=== PATIENT | female | born 1980 | race Caucasian/White ===

== ENCOUNTER 2018-08-26 10:33 | Emergency (ER) | payer OTHER ==
--- OUTSIDE RECORDS SUMMARY | 2018-08-26 10:57 | XMS REPORT | Continuity of Care Document ---
:1980 External Reference #:[id number] Author Name Omar Boateng MD Address [address] [place] [address] Care Team Providers Name Role Phone Husam Esparza MD Care Team Information Critical Care Nurse Specialist Unavailable Husam Esparza MD Primary Care Physician Unavailable Payers Date Identification Numbers Payment Provider Subscriber Policy Number: [id number] [employer] Rasheeda Medina PayID: [id number] [address] [place] [id number] Advance Directives Description No Information Available Problems Description No Information Family History Description No Information Available Social History Type Date Description Comments Sex Unknown Allergies, Adverse Reactions, Alerts Description No Information Medications Description No Information Immunizations Description No Information Available Vital Signs Description No Information Available Results Description No Information Available Procedures Date Code Description Status 08/02/2018 94251 Eye Exam New Patient Comprehensive Completed Encounters Description No Information Available Plan of Treatment Future Appointment(s):08/29/2018 3:15 pm - Ronald Mejia M.D. at [id number]2018 - Omar Boateng [id number] Dry eye syndrome of bilateral lacrimal glandsComments:- if bothersome, please consider:- warm compresses- artificial tears both eyes- consider ointment atnight- can consider punctal occlusion or restasisFollow up:2 years exam or as fgtediU90.30 Silvia's disease, unspecified siteComments:- no sign of inflammation at this time- if redness, pain, sensitivity to light, please callH52.13 Myopia, bilateralComments:- provided rx for glasses
--- OUTSIDE RECORDS SUMMARY | 2018-08-26 10:57 | XMS REPORT | Continuity of Care Document ---
:1980 External Reference #:[id number] Author Name Deedee Aldridge MD Address [facility] [place] [address] Care Team Providers Name Role Phone Husam Esparza MD Primary Care Physician Unavailable Payers Date Identification Numbers Payment Provider Subscriber Expires: 2018 Policy Number: [id number] Medicaid Rasheeda Medina Group Name: 1 1 [address] PayID: [id number] [place] [address] Effective: 2018 Policy Number: [id number] Navidalina Medina PayID: [id number] [address] [place] [address] Advance Directives Description No Information Available Problems Description No Information Family History Date Family Member(s) Observation Comments General Heart Disease General Hypertension General Diabetes General Stroke General Osteoarthritis General Rheumatoid Arthritis Social History Type Date Description Comments Sex Unknown Tobacco Use Start: Unknown End: Unknown Patient is a former smoker Smoking Status Reviewed: 07/23/18 Patient is a former smoker Allergies, Adverse Reactions, Alerts Date Description Reaction Status Severity Comments 07/23/2018 Penicillin Active Medications Medication Date Status Form Strength Qnty SIG Indications Ordering Provider Gabapentin 08/06/ Active Capsules 300mg 30cap take 1 Deedee 2018 s by mouth callie Aldridge MD night at bedtime Naproxen 07/23/ Active Tablets 250mg 60tab 1 by Deedee 2018 s mouth Luis Carlos, twice a MD day Neurontin 07/03/ Active Capsules 300mg 30cap PO QHS Deedee 2018 s MD Luis Carlos Hydrocodone-Acetamin / Active Tablets 5-325mg 20tab 1 or 2 M54.16 Deedee ophen 0000 s tabs by marixa Aldridge MD every 6-8 hours as needed for pain Methylprednisolone / Hx Tablets 4mg 1 by Unknown 0000 - mouth 07/23/ every 2019 day Immunizations Description No Information Available Vital Signs Description No Information Available Results Description No Information Available Procedures Description No Information Available Encounters Type Date Location Provider Dx Diagnosis Office Visit 07/23/2018 Sports Medicine Deedee Thomasceciliakailee, M54.16 Radiculopathy, 1:30p Of [facility] AT MD lumbar region [place] Plan of Treatment Future Appointment(s):08/14/2018 10:20 am - Melanie Marcus MD at [id number]/26/2019 - Deedee Luis Carlos, [id number] Radiculopathy, lumbar regionNew Xrays:MRI Lumbar Spine W/O, Scheduled: 08/09/18Comments:The patient continues to have lumbar back pain and pain radiating down her right leg. The pain hasbeen variable and at times improves, but then worsens with increased activity. She has noticed increased numbness in the right leg. I would like to obtain a MRI of the lumbar spine since she has been having symptoms for almost 6 weeks. She has not been able to attend physical therapy for more thanone visit since the therapists do not take her insurance. She is to continue with Gabapentin 300mg every evening. She should continue with the Naprosyn twice a day. She may take hydrocodone on occasion for increased pain. She is to call me if she needs a refill. I will plan on seeing her back after the MRI has been completed. She may be a candidate for an epidural injection.
[2018-08-26 11:56] VITALS: BP 136/93
--- NOTE | 2018-08-26 12:01 | UC ---
Throat Pain/Nasal Connor HPI - HPI Summary HPI Summary: 37 year old female with PMH + for bronchial pneumonia c/o chest congestion, and sinus pressure that started Sunday. Concerned due to history of bronchial pneumonia - History of Current Complaint Chief Complaint: UCRespiratory Stated Complaint: CHEST CONGESTION Time Seen by Provider: 08/26/18 11:59 Hx Obtained From: Patient Hx Last Menstrual Period: unsure ?: No Onset/Duration: Sudden Onset Severity: Mild Pain Intensity: 3 Pain Scale Used: 0-10 Numeric Cough: Nonproductive Related History: Smoking - Allergies/Home Medications Allergies/Adverse Reactions: Allergies Allergy/AdvReac Type Severity Reaction Status Date / Time adhesive tape Allergy Rash Verified 08/26/18 11:50 Penicillins Allergy Swelling Verified 08/26/18 11:50 Of Face,Lips,& Throat Home Medications: Home Medications Gabapentin CAP(*) [Neurontin 300 CAP(*)] 300 mg PO BEDTIME 08/26/18 [History Confirmed 08/26/18] Ibuprofen TAB* [Advil TAB*] 600 mg PO Q6H PRN 08/26/18 [History Confirmed ] Varenicline (NF) [Chantix 1 MG TAB (NF)] 1 mg PO DAILY 08/26/18 [History Confirmed 08/26/18] PMH/Surg Hx/FS Hx/Imm Hx Previously Healthy: Yes - + TOB use - Surgical History Surgical History: Yes Surgery Procedure, Year, and Place: amor 2012. URETHRAL ENLARGEMENT INFANT - Social History Alcohol Use: Rare Substance Use Type: None Smoking Status (MU): Light Every Day Tobacco Smoker Type: Cigarettes Amount Used/How Often: 1 pack every 4-5 days Review of Systems All Other Systems Reviewed And Are Negative: Yes Constitutional: Positive: Negative, Chills, Fatigue Skin: Positive: Negative ENT: Positive: Sore Throat, Ear Ache, Nasal Discharge, Sinus Congestion, Sinus Pain/Tenderness Respiratory: Positive: Shortness Of Breath, Cough Is Patient Immunocompromised?: No Physical Exam Triage Information Reviewed: Yes Appearance: No Pain Distress, Well-Nourished, Ill-Appearing - mild Vital Signs: Initial Vital Signs Temp 98.4 F 08/26/18 11:52 Pulse 80 08/26/18 11:52 Resp 16 08/26/18 11:52 BP 136/93 08/26/18 11:52 Pulse Ox 100 08/26/18 11:52 Vital Signs Reviewed: Yes Eyes: Positive: Conjunctiva Clear ENT: Positive: Pharyngeal erythema - minimal, TMs normal - + fluid posterior TM b/l, Sinus tenderness - b/l submand, frontal. Negative: Tonsillar swelling, Tonsillar exudate, Uvula midline Neck: Positive: Supple, Nontender, No Lymphadenopathy. Negative: Nuchal Rigidity Respiratory: Positive: Chest non-tender, Lungs clear, Normal breath sounds, No respiratory distress, No accessory muscle use. Negative: Crackles, Rhonchi, Stridor, Wheezing Cardiovascular: Positive: RRR, No Murmur Abdomen Description: Positive: Nontender, No Organomegaly Skin Exam: Normal Throat Pain/Nasal Course/Dx - Course Course Of Treatment: sinutitis with TOb use, Abx, OTCs for symptoms, follow up with primary within 2- 3 days if no improvement - Differential Dx/Diagnosis Differential Diagnosis/HQI/PQRI: Epiglottitis, Laryngitis, Pharyngitis, Sinusitis Provider Diagnosis: Sinusitis Discharge - Sign-Out/Discharge Documenting (check all that apply): Patient Departure All imaging exams completed and their final reports reviewed: No Studies - Discharge Plan Condition: Good Disposition: HOME Prescriptions: DOXYcycline CAP(*) [DOXYcycline 100MG CAP(*)] 100 mg PO BID #20 cap Patient Education Materials: Sinusitis (ED) Referrals: Husam Esparza MD [Primary Care Provider] - Additional Instructions: - Increase fluid intake - Over the counter medications to help with symptoms - Antibiotics for 10 days due to history of tobacco use - Increase rest - Billing Disposition and Condition Condition: GOOD Disposition: Home
== END 2018-08-26 12:21 | disposition home or self-care (01) ==
LOC: UCCORT 10:33
DX: J32.9 Chronic sinusitis, unspecified (principal); F17.210 Nicotine dependence, cigarettes, uncomplicated; Z88.0 Allergy status to penicillin; Z91.09 Other allergy status, other than to drugs and biological substances
CPT/HCPCS: 99212; G0463